=== PATIENT | male | born 1990 | race Caucasian/White ===

== ENCOUNTER 2016-08-29 16:58 | Emergency (ER) | payer OTHER ==
[~2016-08-29] VITALS: Ht 177.8 cm; Wt 63.5 kg
--- NOTE | 2016-08-29 18:44 | ED INFLUENZA/URI COMPLAINT ---
History of Present Illness General Chief Complaint: General Adult Stated Complaint: COUGHING UP BLOOD Source: patient Exam Limitations: no limitations Vital Signs & Intake/Output Vital Signs & Intake/Output Vital Signs Date Time Temp Pulse Resp B/P Pulse O2 O2 Flow FiO2 Ox Delivery Rate 08/29 1707 97.9 62 20 100/57 97 Room Air Allergies Coded Allergies: NO KNOWN ALLERGIES (08/29/16) Reconcile Medications Albuterol Sulfate (Proventil Hfa) 90 MCG HFA.AER.AD 2 PUF INH Q4 SOB Brompheniramine/Pseudoephed/Dm (Bromfed Dm Cough Syrup) 2 MG-30 MG-10 MG/5 ML SYRUP 5-10 ML PO Q4-6 PRN PRN COUGH Doxycycline Hyclate 100 MG TABLET 1 TAB PO BID BRONCHITIS Prednisone (Deltasone) 20 MG TABLET 1 TAB PO TID BRONCHITIS Triage Note: TRIAGE: PT TO ER C/C COUGHING UP BLOOD X 2 EPISODES, 1 EPISODE YESTERDAY AND 1 2 DAYS AGO. BLOOD IS BRIGHT RED IN COLOR, SMALL AMOUNT, -CLOTS. STATES IT HAPPENED AFTER CLEARING HIS THROAT AND HAS HAD URI TYPE S/S X 1 -2 WKS. COUGH HAS BEEN PRODUCTIVE WITH YELLOW PHLEGM REPORTED. PT IS DAILY SMOKER. Triage Nurses Notes Reviewed? yes Onset: Abrupt Duration: day(s):, constant, continues in ED Timing: recent history Severity: moderate, severe No Modifying Factors: none HPI: 26-year-old male comes into emergency room for further evaluation of wheezing, cough, runny nose, congestion. Patient reports that yesterday when he was coughing forcefully he noticed that the mucous with blood tinge a little bit. Denies any further episodes since then. Otherwise it is a yellow mucus. Patient admits to smoking on a daily basis. Denies any other associated symptoms. (IFTIKHAR MUNGUIA) Past History Travel History Traveled to [place] past 21 day No Medical History Any Pertinent Medical History? 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 No (IFTIKHAR MUNGUIA) Review of Systems Review of Systems Constitutional: Reports: no symptoms. EENTM: Reports: see HPI. Respiratory: Reports: see HPI. Cardiovascular: Reports: no symptoms. GI: Reports: no symptoms. Genitourinary: Reports: no symptoms. Musculoskeletal: Reports: no symptoms. Skin: Reports: no symptoms. Neurological/Psychological: Reports: no symptoms. Hematologic/Endocrine: Reports: no symptoms. Immunologic/Allergic: Reports: no symptoms. All Other Systems: Reviewed and Negative (IFTIKHAR MUNGUIA) Physical Exam Physical Exam General Appearance: well developed/nourished, no apparent distress, alert Head: atraumatic, normal appearance Eyes: Bilateral: normal appearance, EOMI. Ears, Nose, Throat: normal ENT inspection, moist mucous membrane, hearing grossly normal, nasal congestion Neck: normal inspection Respiratory: normal breath sounds, no respiratory distress Cardiovascular: regular rate/rhythm Gastrointestinal: soft Back: normal inspection Extremities: normal inspection, normal range of motion Neurologic/Psych: awake, alert, oriented x 3, normal gait, normal mood/affect Skin: intact, normal color Core Measures Severe Sepsis Present: No Septic Shock Present: No (IFTIKHAR MUNGUIA) Progress Differential Diagnosis: influenza, meningitis, neutropenia, otitis, pneumonia, pharyngitis, sinusitis, bRONCHITIS, PULMONARY EMBOLISM Plan of Care: Laboratory Tests 08/29/16 1830: Sodium Cancelled, Potassium Cancelled, Chloride Cancelled, Carbon Dioxide Cancelled, Anion Gap Cancelled, BUN Cancelled, Creatinine Cancelled, BUN/ Creatinine Ratio Cancelled, Glucose Cancelled, Calcium Cancelled, Total Bilirubin Cancelled, AST Cancelled, ALT Cancelled, Alkaline Phosphatase Cancelled, Total Protein Cancelled, Albumin Cancelled, Globulin Cancelled, Albumin/Globulin Ratio Cancelled, D-Dimer Cancelled, CBC w Diff Cancelled, WBC Cancelled, RBC Cancelled, Hgb Cancelled, Hct Cancelled, MCV Cancelled, MCH Cancelled, RDW Cancelled, Plt Count Cancelled, MPV Cancelled, PUBS MCHC Cancelled Initial ED EKG: none Comments: 08/29/2016 7:02:27 PM Very low suspicion for pulmonary embolism. Patient has symptoms most consistent with bronchitis. Patient covered with antibiotics to cover for potential pneumonia. Offered patient further evaluation with chest x-ray blood work and d -dimer but he agrees with my plan of care and assessment and would rather not do a full workup at this time. Patient will be treated symptomatically since he has all symptoms to go along with a viral illness. Return if any other concerns worsening symptoms. Patient understands and agrees with plan of care. Other than hemoptysis patient is a PERC SCORE NEGATIVE AND LOW PROB WELLS CRITERIA. (PATRIZIA GELLER,IFTIKHAR) Departure Departure Disposition: HOME OR SELF CARE Condition: Stable Clinical Impression Primary Impression: Bronchitis Referrals: PATIENT HAS NO PRIMARY CARE DR (PCP/Family) Additional Instructions: Take doxycycline, prednisone, albuterol, and Bromfed as prescribed. Follow-up with your primary care doctor. If you have any increased coughing up of blood return to emergency room for further evaluation. Please go over all results of today's visit with your primary care doctor. Contact your primary care doctor to let them know you were here in the emergency room. There may be nonspecific findings which may not be related to your visit today here in the emergency room but may require further evaluation and chronic monitoring by your primary care doctor. If you had a laceration today the chance of foreign body always remains. You should follow-up with your primary care doctor for recheck in 3-5 days for a wound check. If you had an x-ray done there is a chance that a fracture could have been missed on initial read and you should follow-up with your primary care doctor for repeat x-rays if symptoms persist. If your blood pressure was elevated here in the emergency room please have rechecked by her primary care doctor within the next 48 hours by your primary care doctor. If you were prescribed a narcotic here in the emergency room or any type of controlled substances you're not allowed to drive while taking this medication or operate any type of heavy machinery. Narcotics can make you feel lightheaded dizziness nausea and can cause constipation. You may need to fruit picker a stool softener. Thank you for choosing [facility] emergency room. Please return to the emergency room immediately if you have any other concerns worsening of symptoms. Departure Forms: Customer Survey General Discharge Information Prescriptions: Current Visit Scripts Prednisone (Deltasone) 1 TAB PO TID #12 MG Albuterol Sulfate (Proventil Hfa) 2 PUF INH Q4 #1 INHAL Doxycycline Hyclate 1 TAB PO BID #20 TAB Brompheniramine/Pseudoephed/Dm (Bromfed Dm Cough Syrup) 5-10 ML PO Q4-6 PRN PRN COUGH #120 ML (IFTIKHAR MUNGUIA) PA/SEARCH ENGINE MARKETING SPECIALIST Co-Sign Statement Statement: ED Attending supervision documentation- [] I saw and evaluated the patient. I have also reviewed all the pertinent lab results and diagnostic results. I agree with the findings and the plan of care as documented in the PA's/SEARCH ENGINE MARKETING SPECIALIST's documentation. [X] I have reviewed the ED Record and agree with the PA's/SEARCH ENGINE MARKETING SPECIALIST's documentation. [] Additions or exceptions (if any) to the PAs/SEARCH ENGINE MARKETING SPECIALIST's note and plan are summarized below: [] (TOM NORIEGA,NATASHA)
[2016-08-29] MEDS ORDERED: DOXYCYCLINE HY100 M4 PO (18:47)
[2016-08-29] MEDS ORDERED: PROVENTIL HFA6.7 GM INH (18:47)
[2016-08-29] MEDS ORDERED: DELTASONE20 MG PO (18:47)
[2016-08-29] MEDS ORDERED: BROMFED DM COU118 M1 PO (18:47)
[2016-08-29 19:07] VITALS: BP 113/56
== END 2016-08-29 19:21 ==
LOC: ERH 16:58
DX: J40 Bronchitis, not specified as acute or chronic (principal); Z72.0 Tobacco use
CPT/HCPCS: 1263; 1395

== ENCOUNTER 2017-12-06 03:21 | Emergency (ER) | payer OTHER ==
[~2017-12-06] VITALS: Ht 175.3 cm; Wt 66.7 kg
[~2017-12-06 03:21] MED LIST: BROMFED DM COU118 M1 PO; DELTASONE20 MG PO; DOXYCYCLINE HY100 M4 PO; PROVENTIL HFA6.7 GM INH
[2017-12-06 03:45] VITALS: BP 91/61
--- NOTE | 2017-12-06 04:06 | ED UPPER/LOWER EXTREMITY COMPL ---
History of Present Illness General Chief Complaint: General Adult Stated Complaint: LEFT SIDE PAIN FROM BUTTOCKS TO LOW BACK Source: patient, old records, friend Exam Limitations: no limitations Vital Signs & Intake/Output Vital Signs & Intake/Output Vital Signs Date Time Temp Pulse Resp B/P B/P Pulse O2 O2 Flow FiO2 Mean Ox Delivery Rate 12/06 0345 98.7 93 18 91/61 96 Room Air Allergies Coded Allergies: NO KNOWN ALLERGIES (08/29/16) Reconcile Medications Albuterol Sulfate (Proventil Hfa) 90 MCG HFA.AER.AD 2 PUF INH Q4 SOB Brompheniramine/Pseudoephed/Dm (Bromfed Dm Cough Syrup) 2 MG-30 MG-10 MG/5 ML SYRUP 5-10 ML PO Q4-6 PRN PRN COUGH Cyclobenzaprine HCl 10 MG TABLET 1 TAB PO TID PRN muscle spasm Doxycycline Hyclate 100 MG TABLET 1 TAB PO BID BRONCHITIS Hydrocodone/Acetaminophen ([place] 5-325 Tablet) 5 MG-325 MG TABLET 1-2 TAB PO Q4-6 PRN PRN severe pain Ibuprofen 600 MG TABLET 1 TAB PO Q6P PRN pain with food Prednisone (Deltasone) 20 MG TABLET 1 TAB PO TID BRONCHITIS Triage Note: TRIAGE: PATIENT TO ER FROM HOME REPORTING L SIDE BUTTOCKS PAIN X 6 DAYS. CURRENTLY 10/29. REPORTS TOOK NAPROXEN W/ RELIEF FEW DAYS AGO. REPORTS MARTÍN IS WORSE W/ COUGH, DENIES SKIN COMPLAINTS TO AREA/ DENIES INJURIES. "PAIN IS L BUTTOCKS/ LOW BACK." DENIES OTHER SX. Triage Nurses Notes Reviewed? yes Onset: Last week Duration: day(s):, constant, continues in ED Timing: recent history Severity: severe Pain/Injury Location: Left: Other (buttock). Method of Injury: unknown Modifying Factors: Worsens With: movement, other (weightbearing). Associated Symptoms: stiffness HPI: 1 week prior to admission patient complains of left buttock pain sharp severe worse with sitting exertion with radiation to lower leg. He denies injury fever chills nausea vomiting diarrhea abdominal pain chest pain shortness breath headache dysuria rash bleeding. He reports prolonged sitting up to 22 hours playing video games. Past History Travel History Traveled to [place] past 21 day No Medical History Any Pertinent Medical History? 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 No Review of Systems Review of Systems Constitutional: Reports: no symptoms. EENTM: Reports: no symptoms. Respiratory: Reports: no symptoms. Cardiovascular: Reports: no symptoms. Gastrointestinal/Abdominal: Reports: no symptoms. Genitourinary: Reports: no symptoms. Musculoskeletal: Reports: see HPI, muscle pain. Skin: Reports: no symptoms. Neurological/Psychological: Reports: no symptoms. Hematologic/Endocrine: Reports: no symptoms. Immunological: Reports: no symptoms. All Other Systems: Reviewed and Negative Physical Exam Physical Exam General Appearance: well developed/nourished, alert, awake, anxious, mild distress Head: atraumatic, normal appearance Eyes: Bilateral: normal appearance, PERRL, EOMI. Ears, Nose, Throat: normal pharynx, normal ENT inspection, hearing grossly normal Neck: normal inspection, supple, full range of motion Cardiovascular/Respiratory: normal breath sounds, normal peripheral pulses, regular rate/rhythm, no respiratory distress Peripheral Pulses: 4+ carotid (R), 4+ carotid (L) Back: normal inspection, normal range of motion, muscle spasm (left buttock), no vertebral tenderness Shoulder Left: normal range of motion, normal inspection Shoulder Right: normal range of motion, normal inspection Elbow Left: normal range of motion, normal inspection Elbow Right: normal range of motion, normal inspection Hand Left: normal inspection, normal range of motion Hand Right: normal inspection, normal range of motion Upper Extremity Reflexes: 2+: bicep (R), bicep (L). Leg Left: normal range of motion, normal inspection Leg Right: normal range of motion, normal inspection Hip Left: normal range of motion, soft tissue tenderness (buttock) Hip Right: normal range of motion, normal inspection Knee Left: normal range of motion, normal inspection Knee Right: normal range of motion, normal inspection Foot Left: normal inspection, normal range of motion Foot Right: normal inspection, normal range of motion Lower Extremity Reflexes: 2+: knee (R), knee (L). Neurologic/Tendon: normal sensation, normal motor functions, normal tendon functions Skin: intact, normal color, warm/dry Lymphatic: no anterior cervical paris Progress Differential Diagnosis: contusion, sprain Plan of Care: Current Medications Sig/Hans Start time Last Medication Dose Stop Time Status Admin Cyclobenzaprine HCl 10 MG ONCE ONE 12/06 414 AC (Flexeril 10MG Tab) 12/07 415 Hydrocodone Bitart/ 1 TAB ONCE ONE 12/06 414 AC Acetaminophen 12/07 415 (Vicodin) Ibuprofen 600 MG ONCE ONE 12/06 414 AC (Motrin) 12/07 415 Departure Departure Time of Disposition: 407 Disposition: HOME OR SELF CARE Condition: Stable Clinical Impression Primary Impression: Piriformis syndrome of left side Referrals: Patient Has No Primary Care Dr (PCP/Family) Departure Forms: Customer Survey General Discharge Information Prescriptions: Current Visit Scripts Ibuprofen 1 TAB PO Q6P PRN pain #30 TAB with food Cyclobenzaprine HCl 1 TAB PO TID PRN muscle spasm #30 TAB Hydrocodone/Acetaminophen ([place] 5-325 Tablet) 1-2 TAB PO Q4-6 PRN PRN severe pain #15 TAB
[2017-12-06] MEDS ORDERED: IBUPROFEN600 M1 PO (04:10)
[2017-12-06] MEDS ORDERED: NORCO 5-325 TA1 EACH PO (04:10)
[2017-12-06] MEDS ORDERED: CYCLOBENZAPRINE10 M1 PO (04:10)
== END 2017-12-06 04:20 ==
LOC: ERH 03:21
DX: M54.5 Low back pain (principal)